=== PATIENT | male | born 1980 | race Caucasian/White ===

== ENCOUNTER → 2017-09-03 15:52 | Outpatient (CLI) | payer BC, SELFPAY ==
--- NOTE | 2017-09-03 | FLU_PTH ---
PATIENT: RUTHY CALDERON LOC: [facility] U#:[id number] AGE/SX: 45/M ROOM: RE09/03/[address]: Elizabet Quiñones PA-C : 1980 BED: DIS: SPEC #: [id number] RECD: 09/04/17 08:17 STATUS: LORENZO GEOVANNA #: [id number] LI: 09/03/17 00:[address]: Elizabet Quiñones DEPT: CYTOLOGY RECD BY: Ortiz Ivan ENTERED: 09/04/17 08:18 SP TYPE: Fluid OTHR DR: Dr. Tevin Peterson MD Tissues: CYST Procedures: Special Stain Group II Special Stain Group I Surgery Specimen Level IV AFB Stain (control) GMS Stain (control) Cytospin Fluid HEADER OPERATION: Not noted PRE-OP DIAGNOSIS: Infected abscess of right postauricular area TISSUE SUBMITTED: Right postauricular area fluid for cytology DIAGNOSIS CYTOLOGY Right postauricular area fluid (cytospin and cell block): Acute inflammation, consistent with abscess formation. Special stains for acid fast bacilli and fungi are negative for organisms; matched controls are appropriate. SJ:rg 09/05/17 COMMENT Correlation with clinical findings and appropriate follow up are necessary. CYTOLOGY STUDY Slides are reviewed. The specimen entirely consists of neutrophils. CYTOLOGY GROSS Received is 4 ml of light moctezuma fluid labeled with the patient's name and and designated per the requisition as right postauricular area. Submitted for cytology preparation including cell block. / 09/04/17 TC:2 CPT: 63427, 17142, 55692 x2
== END ==
PROVIDERS: Family Provider Family Medicine; PCP Family Medicine; Visit Provider Physician Assistant
DX: H60.01 Abscess of right external ear (principal)
CPT/HCPCS: 88108; 88305; 88312; 88313